=== PATIENT | female | born 1945 | race Caucasian/White ===

== ENCOUNTER → 2017-03-08 | Outpatient (CLI) | payer MEDICARE ==
[~2017-03-08] MED LIST: ADVAIR 250-501 EACH IH; ALBUTEROL2.5 MG/0.5 IH; AMITRYPTYLINE PO; BENZONATATE PO; BUSPIRONE HCL10 MG PO; CLINDAMYCIN HC300 MG PO; DILANTIN PO; DOXYCYCLINE HY100 M3 PO; HEADACHE MEDICATION; LEXAPRO PO; PREDNISONE PO; PROPRANOLOL PO; SINGULAIR PO; TIZANIDINE HCL4 M1 PO; TOPAMAX50 MG PO; TYLENOL #3 PO
--- NOTE | ~2017-03-08 | MY11 ---
[facility] A Service of [facility] RADIOLOGY TEXT RESULTS PATIENT: DANIELE KHAN LOCATION: [facility] : 49 UNIT #: [id number] AGE: [address]: Tony Keenan MD SEX: F ORDER DR: [id number] [address] [address] [id number] O MR#: [id number] Acc #: [id number] NAME: DANIELE KHAN : 1945 SEX: F STUDY DATE/TIME: 03/08/2017 13:14 UNIT: [facility] ROOM: STUDY DESCRIPTION: MY Mammogram Screening Dig Romario Attending Physician: Tony Keenan M.D. Referring Physician: Tony Keenan M.D. Ordering Physician: Tony Keenan M.D. Primary Care Physician: Tony Keenan M.D. MEDICAL IMAGING REPORT This report is preliminary unless electronic signature is present. EXAM Digital screening mammogram, 03/08/2017 HISTORY 72-year-old woman no risk elevation. Annual screening. COMPARISON Mammograms 09/23/2008 and 11/09/2011. FINDINGS Digital imaging of each breast was completed utilizing standard craniocaudal and mediolateral-oblique projections. Review and interpretation of digital mammograms include a second review in conjunction with FDA-approved CAD device. There is an overall increase in the parenchymal presentation bilaterally with a generalized fibronodular pattern in each breast. There are no breast masses and I see no asymmetry in the parenchymal presentation. There are no suspicious microcalcifications and I see no architectural disturbance. IMPRESSION Benign mammogram. One-year followup recommended. Patients over the age of 40 are entered into a reminder system with target due date for the next mammogram. A result letter will also be sent to the patient. BIRADS: 2 Benign finding Dictated by... Danilo Ferraro M.D. THIS IS AN ELECTRONICALLY VERIFIED REPORT [facility] A Service of [facility] RADIOLOGY TEXT RESULTS PATIENT: DANIELE KHAN LOCATION: [facility] : 49 UNIT #: [id number] AGE: [address]: Tony Keenan MD SEX: F ORDER DR: Danilo Ferraro M.D. at 03/15/2017 7:12 AM SARAH/scott TD: 03/08/2017 16:26 JOB #: [id number] MEDICAL IMAGING REPORT Page 1 of 1
== END | disposition home or self-care (01) ==
LOC: SMAM 03-01 11:45
DX: Z12.31 Encounter for screening mammogram for malignant neoplasm of breast (principal)
CPT/HCPCS: G0202